=== PATIENT | female | born 1955 | race Caucasian/White ===

== ENCOUNTER 2019-12-18 05:51 | Day surgery (SDC) | payer OTHER ==
[~2019-12-18] VITALS: Ht 162.6 cm; Wt 85.7 kg
[~2019-12-18 05:51] MED LIST: ASCO500T7 PO; MULT-484 PO; NONE PER PT; None at this time; OXYC-307 PO
[2019-12-18] MEDS ORDERED: BUPIVACAINE/PF 0.5% ONE (06:03)
[2019-12-18] MEDS ORDERED: HEPARIN 1,000 UNITS/ML, 10ML ONE (06:03)
[2019-12-18] MEDS ORDERED: LACTATED RINGERS 1,000 ML IV SCH (06:08)
[2019-12-18 06:29] VITALS: BP 128/87
[2019-12-18] MEDS ORDERED: CHLORHEXIDINE 15 ML UDC MM ONE (06:30)
[2019-12-18] MEDS ORDERED: LIDOCAINE-MPF 1%, 2ML INFIL ONE (06:30)
[2019-12-18] MEDS ORDERED: LIDOCAINE-MPF 2% ,5ML ONE (06:41)
[2019-12-18] MEDS ORDERED: FENTANYL PF 100 MCG/2ML ONE (06:41)
[2019-12-18] MEDS ORDERED: PROPOFOL 10 MG/ML, 20ML ONE (06:41)
[2019-12-18] MEDS ORDERED: PROMETHAZINE 25 MG/ML, 1ML IVPush PRN (07:00)
[2019-12-18] MEDS ORDERED: FENTANYL PF 100 MCG/2ML IV PRN (07:00)
[2019-12-18] MEDS ORDERED: OXYcodone 5 MG/5 ML ORAL.SOL UDC PO PRN (07:00)
[2019-12-18] MEDS ORDERED: ONDANSETRON 2MG/ML, 2ML IVPush PRN (07:00)
[2019-12-18] MEDS ORDERED: DEXAMETHASONE 4 MG/ML, 1ML ONE ×2 (07:10)
[2019-12-18] MEDS ORDERED: CEFAZOLIN 1,000 MG ONE ×2 (07:10)
[2019-12-18] MEDS ORDERED: KETOROLAC 30 MG/1 ML ONE (07:33)
[2019-12-18] MEDS ORDERED: ONDANSETRON 2MG/ML, 2ML ONE (07:33)
[2019-12-18] MEDS ORDERED: ACETAMINOPHEN 650 MG/20.3 ML UDC ONE (08:21)
[2019-12-18] MEDS ORDERED: ACETAMINOPHEN 650 MG/20.3 ML UDC PO PRN (08:30)
[2019-12-18] MEDS ORDERED: EPHEDRINE 50 MG/ML, 1ML ONE (11:36)
== END 2019-12-18 09:25 | disposition home or self-care (01) ==
LOC: OUT 05:51
PROVIDERS: ATTEND Surgery
DX: C20 Malignant neoplasm of rectum (principal); Z20.828 Contact with and (suspected) exposure to other viral communicable diseases; E66.01 Morbid (severe) obesity due to excess calories
CPT/HCPCS: 36415; 36561; 77001; 87635; 93005; C1788; J0690; J1100; J1644; J1885; J2405; J2704; J3010; J7120

== ENCOUNTER 2020-09-17 10:39 | Emergency (ER) | payer OTHER ==
[~2020-09-17] VITALS: Ht 162.6 cm; Wt 62.4 kg
[~2020-09-17 10:39] MED LIST changes: -OXYC-307 PO; +OXYC-501 PO
--- NOTE | 2020-09-17 10:44 | NUR ---
CALL X1 NOT IN LOBBY
[2020-09-17 11:44] LABS: BASOPHILS % (AUTO) 0 % (0-1); EOSINOPHILS % (AUTO) 0 % (1-7); LYMPHOCYTES % (AUTO) 8 % (22-44); MEAN CORPUSCULAR HEMOGLOBIN 32.4 pg (27.0-34.8); MEAN CORPUSCULAR HGB CONC 34.5 g/dL (32.4-35.8); MEAN PLATELET VOLUME 8.2 fL (7.4-10.4); MONOCYTES % (AUTO) 11 % (2-9); NEUTROPHILS % (AUTO) 81 % (42-75); PLATELET COUNT 144 x10^3/uL (130-400); RED BLOOD COUNT 4.28 x10^6/uL (3.82-5.3); RED CELL DISTRIBUTION WIDTH 13.2 % (9.6-15.2)
[2020-09-17 11:56] LABS: ALBUMIN 3.9 g/dL (3.4-5.0); ANION GAP 17 mmol/L (5-15); CALCIUM 8.8 mg/dL (8.5-10.1); CHLORIDE 98 mmol/L (98-107)
[2020-09-17 12:00] LABS: D-DIMER (DIC) 0.52 ug/mlFEU (0.00-0.52)
[2020-09-17] MEDS ORDERED: FILTER 0.22 MICRON IV ONE ×4 (12:00→12:30)
[2020-09-17] MEDS ORDERED: SODIUM CHLORIDE 0.9%, 500ML IVBOLUS ONE ×2 (12:00→12:30)
[2020-09-17 12:04] LABS: ALANINE AMINOTRANSFERASE 31 U/L (12-78); ALKALINE PHOSPHATASE 101 U/L (45-117); BILIRUBIN,TOTAL 0.3 mg/dL (0.2-1.0); CREATININE 2.15 mg/dL (0.55-1.02)
[2020-09-17] MEDS ORDERED: DEXAMETHASONE 4 MG/ML, 1ML IVPush ONE (12:30)
[2020-09-17] MEDS ORDERED: BAMLANIVIMAB 700 MG, ETESEVIMAB 1,400 MG in SODIUM CHLORIDE 0.9% 250 ML IV ONE (12:30)
[2020-09-17] MEDS ORDERED: CASIRIVIMAB 600 MG, IMDEVIMAB (REGN10987) 600 MG in SODIUM CHLORIDE 0.9% 250 ML IVPB ONE (13:00)
--- NOTE | 2020-09-17 13:41 | NUR ---
PT UP TO BEDSIDE COMMODE. PT STEADY ON FEET. DAUGHTER AT BEDSIDE.
[2020-09-17 14:06] VITALS: BP 101/56
[2020-09-17] MEDS ORDERED: DEXAMETHASONE 4 MG/ML, 1ML ONE (14:11)
== END 2020-09-17 14:51 | disposition home or self-care (01) ==
LOC: ED 13:13
DX: U07.1 COVID-19 (principal); R05 Cough; R06.02 Shortness of breath; R53.83 Other fatigue; E87.1 Hypo-osmolality and hyponatremia; R94.31 Abnormal electrocardiogram [ECG] [EKG]
CPT/HCPCS: 36415; 71045; 80053; 82728; 83605; 83615; 84145; 85025; 85049; 85379; 85384; 85610; 85730; 86140; 87040; 93005; 96361; 96365; 96375; 99285; J1100; J7040; J7050

== ENCOUNTER 2020-10-01 12:24 | Outpatient (CLI) | payer OTHER ==
[~2020-10-01 12:24] MED LIST changes: +OXYC-380 PO; -OXYC-501 PO
[2020-10-01 13:47] LABS: BASOPHILS % (AUTO) 1 % (0-1); EOSINOPHILS % (AUTO) 0 % (1-7); LYMPHOCYTES % (AUTO) 9 % (22-44); MEAN CORPUSCULAR HEMOGLOBIN 31.8 pg (27.0-34.8); MEAN CORPUSCULAR HGB CONC 33.9 g/dL (32.4-35.8); MEAN PLATELET VOLUME 6.3 fL (7.4-10.4); MONOCYTES % (AUTO) 9 % (2-9); NEUTROPHILS % (AUTO) 80 % (42-75); PLATELET COUNT 274 x10^3/uL (130-400); RED BLOOD COUNT 3.82 x10^6/uL (3.82-5.3); RED CELL DISTRIBUTION WIDTH 13.6 % (9.6-15.2)
[2020-10-01 13:58] LABS: ALBUMIN 3.3 g/dL (3.4-5.0); ANION GAP 6 mmol/L (5-15); CALCIUM 9.8 mg/dL (8.5-10.1); CHLORIDE 107 mmol/L (98-107)
[2020-10-01 14:06] LABS: ALANINE AMINOTRANSFERASE 39 U/L (12-78); ALKALINE PHOSPHATASE 118 U/L (45-117); BILIRUBIN,TOTAL 0.4 mg/dL (0.2-1.0); CREATININE 0.75 mg/dL (0.55-1.02); TOTAL PROTEIN 7.3 g/dL (6.4-8.2)
== END 2020-10-01 23:59 | disposition home or self-care (01) ==
LOC: STAR 12:24
PROVIDERS: ATTEND Surgery
DX: Z01.818 Encounter for other preprocedural examination (principal)
CPT/HCPCS: 36415; 80053; 85025; 93005

== ENCOUNTER → 2020-10-05 | Outpatient (CLI) | payer OTHER ==
[~2020-10-05] MED LIST changes: +OMNIPAQUE 350 MG/ML, 150 ML BOTTLE ONE
== END | disposition home or self-care (01) ==
LOC: RAD 08:33
PROVIDERS: ATTEND Surgery
DX: Z93.2 Ileostomy status (principal)
CPT/HCPCS: 74270; Q9967